=== PATIENT | male | born 1950 | race Caucasian/White ===

== ENCOUNTER 2024-11-27 08:55 | Outpatient (REF) | payer MEDICARE, SELFPAY ==
--- OUTSIDE RECORDS SUMMARY | 2024-11-27 09:31 | XMS_ITS | Clinical Summary ---
Author Organization [facility] [employer] Address [address] [address] Phone Care Team Providers Care Market Survey Representative Name Role Phone Perez Jorgensen MD Primary Care Provider Allergies Active Allergy Reactions Criticality Noted Date Comments Cefazolin 11/20/2021 Other Reaction(s): Rash/Dermatitis Transaminitis Oxacillin 11/20/2021 Other Reaction(s): Rash/Dermatitis transaminitis Sulfa (Sulfonamide Antibiotics) 08/01/2020 Medications aspirin 81 mg EC tablet TAKE 1 TABLET BY MOUTH EVERY DAY 04/04/2024 Active ubidecarenone (coenzyme Q10) 100 mg tablet Take 100 mg by mouth daily. 09/22/2015 Active furosemide (LASIX) 40 mg tablet TAKE 1 TABLET BY MOUTH TWICE A DAY 01/07/2024 Active nitroglycerin (NITROSTAT) 0.4 mg SL tablet DISSOLVE 1 TABLET UNDER THE TONGUE AT 1ST SIGN OF ATTACK REPEAT IN 5 MINUTES UP TO 3X AND CALL 911 IF NO RELIEF 08/28/2022 Active predniSONE (DELTASONE) 10 mg tablet Take 1 Tablet by mouth daily. Active rosuvastatin (CRESTOR) 40 mg tablet Take 1 Tablet by mouth daily. Active tirzepatide, weight loss, (Zepbound) 2.5 mg/0.5 mL injection Inject into the skin every 7 days. Active omeprazole (PriLOSEC) [address] capsule Take 1 capsule (20 mg total) by mouth 1 (one) time each day if needed. Do not crush or chew. Active QUEtiapine (SEROquel) 50 mg tablet Take 1 tablet (50 mg total) by mouth at bedtime. Active Active Problems Problem Noted Date Diagnosed Date Bruit of left carotid artery 10/27/2022 Assessment & Plan (06/12/2024 4:47 PM EST): Edema 11/24/2021 HLD (hyperlipidemia) 11/20/2021 Assessment & Plan (09/04/2024 5:47 PM EST): Aim for LDL cholesterol less than 70 mg/dL. Orders: ECG 12 lead Assessment & Plan (06/12/2024 4:47 PM EST): The patient has known coronary artery disease with total occlusion of his left circumflex coronary artery and nonobstructive disease elsewhere. He has had a favorable response to high-dose statin therapy. Goal for therapy is LDL 70 mg/dL or less. HTN (hypertension) 11/20/2021 Assessment & Plan (09/04/2024 5:47 PM EST): Orders: ECG 12 lead Assessment & Plan (06/12/2024 4:47 PM EST): Blood pressures have been fairly well-controlled. I am not making any changes in the patient's antihypertensive regimen at this time. Aortic stenosis, severe 06/27/2021 Assessment & Plan (09/04/2024 5:47 PM EST): History of TAVR with an excellent hemodynamic result. Orders: ECG 12 lead Assessment & Plan (06/12/2024 4:47 PM EST): Patient had severe highly symptomatic aortic stenosis but has done extremely well following TAVR which I performed in 2019. His last echocardiogram suggested a very low transvalvular gradient and only trace aortic regurgitation with continued preservation of left ventricular systolic function. Echocardiography will be repeated in the next few weeks. Coronary artery disease invo lving [place]-mo[place] coronary artery of te[place]moak heart without angina pectoris 06/27/2021 Assessment & Plan (09/04/2024 5:47 PM EST): Chronic left circumflex coronary artery occlusion without significant disease involving the left main, LAD or right coronary arteries. Orders: ECG 12 lead Assessment & Plan (06/12/2024 4:47 PM EST): The patient has a known history of coronary artery disease. He underwent left circumflex coronary artery stenting in the setting of angina in 2014. Angiography demonstrated no evidence of critical coronary disease in 2018 prior to his TAVR procedure. He had an abnormal nuclear stress test in 2022 revealing a small area of inferolateral ischemia and follow-up angiography demonstrated a new total occlusion of the left circumflex coronary artery with excellent collaterals to the distal vessel arising from multiple sources. No other critical lesions were identified. The patient experienced intermittent episodes of positional chest discomfort several months ago and the nuclear stress test was again ordered. This study revealed a small area of reversible inferolateral ischemia quite similar to the prior study. There is no evidence of multivessel disease and these findings are compatible with the patient's known chronic occlusion of the left circumflex coronary artery. I do not believe he is experiencing any evidence of coronary insufficiency at this time. Shortness of breath 06/27/2021 Assessment & Plan (09/04/2024 5:47 PM EST): Although recent right heart catheterization does suggest elevated pulmonary capillary wedge pressure in the setting of diastolic dysfunction with concomitant valvular heart disease, hypertension and coronary disease the patient has not responded favorably to upward titration of his furosemide and he is not reporting orthopnea. He has a normal creatinine and mild azotemia. I do not feel that we should increase his diuretic therapy further. If further pulmonary evaluation is unrevealing it would not be unreasonable to introduce low-dose Farxiga. This agent can offer help to people with manifest congestive heart failure even with a normal ejection fraction. See further discussion below. 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 Workup for the etiology of his pulmonary disease has been unrevealing. It does appear that he has significant restrictive lung disease and that his underlying inflammatory disorder is responsive to prednisone. Unfortunately the patient did not have a favorable clinical response to the addition of methotrexate to his regimen in the past. He has had both anatomic evaluation with CT scans as well as pulmonary function testing. He is scheduled for repeat PFTs tomorrow. I do not feel that the patient has significant right-sided heart failure. Echocardiography performed 18 months ago did not demonstrate evidence of pulmonary hypertension though estimation of pulmonary artery pressures could not be made due to the absence of tricuspid regurgitation on that study. Today's evaluation does not suggest the presence of jugular venous distention or hepatomegaly. The patient does have mild peripheral edema which is responded favorably to furosemide. The patient has seen Dr. Smith as well as several other pulmonary consultants. It was recently suggested that he might benefit from cardiopulmonary exercise testing including right heart catheterization. Although this test may provide additional information my impression is that that a lion's share of the patient's breathlessness is due to underlying parenchymal lung disease. I do not know whether there would be any benefit to PET scanning or other testing to assess evidence of active inflammation or whether there might be any potential benefit to any of the newer biologic agents. Orders: Transthoracic echocardiogram (TTE) complete with PRN contrast, bubble, strain, and 3D order panel; Future Encounters Date Type Department Care Team Description 11/06/2024 Telephone [facility] Cardiology [address] [place] [address] Anais Carlin MD Ubiquinol CoQ (Ubiquinol CoQ10 ) 09/04/2024 8:20 AM EST Office Visit [facility] Cardiology [address] [place] [address] Anais Carlin MD Shortness of breath (Primary Dx); Aortic stenosis, severe; Coronary artery disease involving [place] coronary artery of [place] heart without angina pectoris; Pure hypercholesterolemia; Primary hypertension; S/P TAVR (transcatheter aortic valve replacement) from Last 3 Months Surgical History Surgery Date Site/Laterality Comments OTHER SURGICAL HISTORY PROCEDURE: [place] UNLISTED PROCEDURE CARDIAC SURGERY; COMMENT: TAVR OTHER SURGICAL HISTORY 2014 PROCEDURE: HISTORY OTHER; COMMENT: Placement of stent in cardiac conduit OTHER SURGICAL HISTORY 2014 PROCEDURE: HISTORY OTHER; COMMENT: Excision of skin cyst of right arm HERNIA REPAIR 2011 PROCEDURE: HISTORICAL HERNIA REPAIR/UMB; COMMENT: Laparoscopic repair of umbilical and bilateral inguinal hernia ANKLE SURGERY 2007 PROCEDURE: HISTORICAL ANKLE SURGERY; COMMENT: Operative procedure on ankle COLONOSCOPY PROCEDURE: HISTORICAL COLONOSCOPY Medical History Medical History Date Comments Asthma DX:Asthma Cough DX:Cough Depression DX:Depression DRESS syndrome DX:DRESS syndrom e Gallstones DX:Gallstones Heartburn DX:Heartburn History of [place] (myocardial infarction) DX:History of [place] (myocardial infarction) Hyperkalemia DX:Hyperkalemia Obstructive sleep apnea DX:Obstr uctive sleep apnea Pleurisy DX:Pleurisy Recurrent pleural effusion DX:Re current pleural effusion Restrictive airway disease DX:Re strictive airway disease S/P coronary artery stent placement DX:S/P coronary artery stent placement Staphylococcus aureus bacteremia DX:Staphylococcus aureus bacteremia Ulnar neuropathy DX:Ulnar neurop athy Biliary dyskinesia DX:Biliary dy skinesia NAFLD (nonalcoholic fatty liver disease) DX:NAFLD (nonalcoholic fatty liver disease) 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 Bronchitis DX:Bronchitis Lung fibrosis (CMS/HCC V24, CMS/HCC V28) DX:Lung fibrosis (HCC) Chronic ischemic heart disease D X:Chronic ischemic heart disease S/P TAVR (transcatheter aort ic valve replacement) DX:S/P TAVR (transcatheter a ortic valve replacement) Positive colorectal cancer s creening using Cologuard test DX:Positive colorectal cance r screening using Cologuard test Family History Medical History Relation Name Comments Hypertension Father Other: Kidney Disease Father Colon cancer Mother Relation Name Status Comments Father Mother Social History Tobacco Use Types Packs/Day Years Used Date Smoking Tobacco: Never Smokeless Tobacco: Never Alcohol Use Standard Drinks/Week Comments Not Currently 0 (1 standard drink = 0.6 oz pur e alcohol) Sex and Gender Information Value Date Recorded Sex Assigned at Not on file Legal Sex Male 10:32 PM EST Gender Identity Not on file Sexual Orientation Not on file Obstetrics History Last Filed Vital Signs Vital Sign Reading Time Taken Comments Blood Pressure 132/78 09/04/2024 8:25 AM EST Pulse 68 09/04/2024 8:25 AM EST Temperature - - Respiratory Rate - - Oxygen Saturation 95% 09/04/2024 8:25 AM EST Inhaled Oxygen Concentration - - Weight 86.3 kg (190 lb 4.8 oz) 09/04/2024 8:25 A M EST Height 162.6 cm (5' 4 ) 09/04/2024 8:25 AM EST Body Mass Index 32.66 09/04/2024 8:25 AM EST Plan of Treatment Upcoming Encounters Date Type Department Care Team (Late st Contact Info) Description 05/15/2025 9:20 AM EDT Office Visit [facility] Cardiology [facility] [address] [place] [address] Anais Carlin MD [address] [place] [address] [address] [place] [address] Health Maintenance Due Date Last Done Comments Hepatitis A Vaccines (1 of 2 - Risk 2-dose series) 1971 Hepatitis B Vaccines (1 of 3 - Risk 3-dose series) 2012 Depression Screening 06/28/2022 Falls Risk Assessment 06/28/2022 Hepatitis C Screening 06/28/2022 Medicare Annual Wellness Visit 06/28/2022 Social Influencers of Health Screening 06/28/2022 COVID-19 Vaccine ( season) 2024 09/28/2023, 04/19/2023, 12/12/2022, Additional history exists Hypertension/CHF/CAD Annual BMP Blood Test 08/29/2025 08/29/2024, 08/10/2024, 05/01/2024, Additional history exists Pneumococcal Vaccine: 50+ Years (3 of 3 - PCV20 or PCV21) 09/24/2026 09/24/2021, 03/28/2014 Cholesterol Screening (Lipid Panel) 04/24/2029 04/24/2024, 02/15/2019 DTaP,Tdap,and Td Vaccines (2 - Td or Tdap) 02/23/2033 02/23/2023 Colorectal Cancer Screening: Colonoscopy 10/25/2033 10/26/2023 Zoster Vaccines Completed 11/24/2021, 09/24/2021 RSV Immunization Adult Patients Completed 04/19/2023 Influenza Vaccine Completed 05/11/2024, , 04/12/2022, Additional history exists HIB Vaccines Aged Out No longer eligi ble based on patient's age to complete this topic HPV Vaccines Aged Out No longer eligi ble based on patient's age to complete this topic IPV Vaccines Aged Out No longer eligi ble based on patient's age to complete this topic MMR Vaccines Aged Out No longer eligi ble based on patient's age to complete this topic Meningococcal ACWY Vaccine Aged Out N o longer eligible based on patient's age to complete this topic Meningococcal B Vaccine Aged Out No l onger eligible based on patient's age to complete this topic RSV Immunization Patients Under 20 months Aged Out No longer eligible based on patient's age to complete this topic Varicella Vaccines Aged Out No longer eligible based on patient's age to complete this topic Procedures Procedure Name Priority Date/Time Associated Diagnosis Comments ECG 12-LEAD Routine 09/04/2024 8:40 AM EST Shortness of breath Aortic stenosis, severe Coronary artery disease involving [place] coronary artery of te[place] heart without angina pectoris Pure hypercholesterolemia Primary hypertension S/P TAVR (transcatheter aortic valve replacement) COLONOSCOPY Routine 10/26/2023 from Last 3 Months or Most Recently Relevant to Health Maintenance Results * ECG 12 lead (09/04/2024 8:40 AM EST) Ventricular Rate ECG 68 BPM GEMUSE Atrial Rate 68 BPM GEMUSE P-R Interval 234 ms GEMUSE QRS Duration 106 ms GEMUSE Q-T Interval 408 ms GEMUSE QTc 433 ms GEMUSE P Wave [place] 60 degrees GEMUSE R [place] -5 degrees GEMUSE T [place] 87 degrees GEMUSE ECG Interpretation Sinus rhythm with 1st degree A-V block Abnormal ECG No previous ECGs available Confirmed by ANAIS CARLIN ([id number]) on 09/04/2024 10:40:18 AM GEMUSE 09/04/2024 8:40 AM EST 09/04/2024 10:40 AM EST Anais Carlin MD ECG ORDERABLES Final Result GEMUSE * Colonoscopy (10/26/2023) Colonoscopy No Interpretation , Abstracted Anatomical Region Laterality Modality Other Steven Provider HEALTH MAINTENANCE Final Result from Last 3 Months or Most Recently Relevant to Health Maintenance Insurance BLUE CROSS - [place] MEDICARE ADVANTAGE Advance Directives Documents on File Type Date Recorded Patient Will Call Clerk Expl anation Health Care Decision (hx) 03/16/2012 AD JENNINGS DIRECTIVE Health Care Decision (hx) 03/16/2012 AD JENNINGS DIRECTIVE Health Care Decision (hx) 03/16/2012 AD JENNINGS DIRECTIVE Health Care Decision (hx) 03/16/2012 AD JENNINGS DIRECTIVE Health Care Decision (hx) 03/16/2012 AD JENNINGS DIRECTIVE Health Care Decision (hx) 03/16/2012 AD JENNINGS DIRECTIVE Health Care Decision (hx) 03/16/2012 AD JENNINGS DIRECTIVE Health Care Decision (hx) 03/16/2012 AD JENNINGS DIRECTIVE Health Care Decision (hx) 03/16/2012 AD JENNINGS DIRECTIVE Health Care Decision (hx) 03/16/2012 AD JENNINGS DIRECTIVE Care Teams Market Survey Representative Relationship Specialty Start Date End Date Perez Jorgensen MD [address] [place] [address] PCP - General Internal Medicine 11/24/11
[2024-11-27 11:28] LABS: MANUAL DIFF FLAG NO
[2024-11-27 11:46] LABS: Basophils Percent Auto 0.4 % (0-2); Eosinophils Absolute Auto 0.2 X10*3/uL (0.0-0.4); Eosinophils Percent Auto 2.2 % (0-4); Hematocrit 41.7 % (42.0-52.0); Hemoglobin 13.7 g/dl (14.0-18.0); Imm Gran Abs Auto 0.11 X10*3/uL (0.00-0.03); Imm Gran Pct Auto 1.4 % (0.0-0.4); Lymphocytes Absolute Auto 0.7 X10*3/uL (1.2-4.9); Lymphocytes Percent Auto 8.6 % (20-40); Mean Corpuscular HGB Conc 32.9 g/dl (31.0-36.0); Mean Corpuscular Hemoglobin 30.2 pg (27.0-33.0); Mean Corpuscular Volume 91.9 fL (80.0-98.0); Mean Platelet Volume 12.1 fL (9.4-12.4); Monocytes Absolute Auto 0.7 X10*3/uL (0.1-1.2); Neutrophils Absolute Auto 6.3 x10*3/uL (2.0-8.3); Neutrophils Percent Auto 78.4 % (45-73); Platelet Count 132 X10*3/uL (160-400); Red Blood Count 4.54 X10*6/uL (4.60-5.80); Red Cell Distribution Width 15.3 % (11.0-16.0); White Blood Count 8.1 X10*3/uL (4.8-10.8)
[2024-11-27 11:58] LABS: Anion Gap 13 (12-20); Blood Urea Nitrogen 20 mg/dL (9-16); Calcium 9.1 mg/dL (8.4-10.2); Carbon Dioxide 33 mmol/L (22-29); Chloride 101 mmol/L (96-108); Estimated Glomerular Filt Rate > 60; Glucose Random 100 mg/dL (60-115); Potassium 3.9 mmol/L (3.3-5.1); Sodium 143 mmol/L (135-145)
[2024-11-27 12:12] LABS: Thyroid Stimulating Hormone 2.13 uIU/mL (0.32-4.0); Vitamin D 25-OH Total 37.6 ng/mL (>30)
[2024-11-27 15:13] LABS: Magnesium 2.1 mg/dL (1.6-2.6)
[2024-11-27 15:35] LABS: Vitamin B12 259 pg/mL (200-900)
== END 2024-11-27 08:56 | disposition home or self-care (01) ==
LOC: HO.WFDLDS 08:55
PROVIDERS: Visit Provider Internal Medicine
DX: M62.81 Muscle weakness (generalized) (principal)
CPT/HCPCS: 36415; 80048; 82306; 82550; 82607; 83735; 84443; 85025; 86140